=== PATIENT | female | born 1995 | race African-American/Black ===

== ENCOUNTER 2020-01-03 21:15 | Emergency (ER) | payer MEDICAID ==
[~2020-01-03] VITALS: Ht 152.4 cm; Wt 44.0 kg
[2020-01-03 21:22] VITALS: BP 112/74
[2020-01-03 22:32] LABS: CLARITY URINE CLOUDY (CLEAR); COLOR URINE YELLOW (YELLOW); KETONES URINE NEGATIVE (NEGATIVE); LEUKOCYTE ESTERASE URINE NEGATIVE (NEGATIVE); NITRITE URINE NEGATIVE (NEGATIVE); OCCULT BLOOD URINE NEGATIVE (NEGATIVE); PROTEIN URINE NEGATIVE (NEGATIVE); SPECIFIC GRAVITY URINE 1.025 (1.005-1.030)
[2020-01-03] MEDS ORDERED: CEFTRIAXONE SODIUM 250 MG/VIAL IM ONE (23:15)
[2020-01-03] MEDS ORDERED: AZITHROMYCIN 500 MG TABLET PO ONE (23:15)
== END 2020-01-03 23:31 | disposition home or self-care (01) ==
LOC: ER 21:15
DX: N39.0 Urinary tract infection, site not specified (principal)
CPT/HCPCS: 81003; 81025; 87081; 87210; 96372; 99283; J0696